=== PATIENT | male | born 2005 | race Caucasian/White ===

== ENCOUNTER 2025-02-16 11:19 | Emergency (ER) | payer OTHER, SELFPAY ==
--- OUTSIDE RECORDS SUMMARY | 2025-02-16 11:21 | XMS_ITS | Clinical Summary ---
Author Organization [facility] Address [address] [place] [address] Care Team Providers Care Security Incident Handler Name Role Phone Elsewhere, Pcp Primary Care Provider Unavailabl e Source Comments Patient records contain information from all sites at [facility]. For routine questions regarding patient records, call [phone] during business hours, M-F 8:00 AM - 5:00 PM Central Time. Record requests for emergency care only can be directed to [phone] at any time.[facility] Allergies No known active allergies Medications No known medications Active Problems Problem Noted Date Diagnosed Date Personal History Of Infectio us And Parasitic Disease (COVID-19) 07/16/2021 Immunizations Immunization Administration Dates Next Due 9vHPV 03/28/2018,03/23/2017 DTaP / Hep B / IPV (Pediarix) 05/03/2005, 005,2004 DTaP / Hib 01/22/2006 DTaP-IPV 11/24/2009 HepA Pediatric/Adolescent 09/30/2014,08/22/2012 Hib (PRP-OMP) (PedvaxHIB) 02/21/2005,2004 Influenza, Seasonal, Injectable 08/11/2008 Influenza, Unspecified 07/20/2010,07/21/2009 MCV4 (Menactra)(Discontinued) 05/10/2021 MCV4 (Menveo) 03/23/2017 MMR 11/24/2009,10/23/2005 PCV7 (discontinued) 01/22/2006, 5,02/21/2005,2004 Tdap 03/02/2024,03/23/2017 SHAUNNA 11/24/2009,10/23/2005 influenza trivalent vaccine (6 months and older)(PF) 07/27/2014,08/22/2012,07/20/2010,2008,10/10/2007,09/05/2007 influenza vaccine quad (FLUZ ONE) (6 months-35 months) (PF) 06/24/2013 influenza vaccine quad (FLUZONE/FLUARIX) (6 months and older)(PF) 08/04/2015,08/08/2014,06/24/2013 Family History Medical History Relation Name Comments Heart defect Brother Pulmonary hypertension Brother Hyperlipidemia Father Unknown Maternal Grandfather No Known Problems Maternal Grandmother No Known Problems Mother Alcoholic Paternal Grandfather Diabetes Paternal Grandfather Hyperlipidemia Paternal Grandfather Hypertension Paternal Grandfather Stroke Paternal Grandfather No Known Problems Paternal Grandmother No Known Problems Sister Relation Name Status Comments Brother Alive Father Alive Maternal Grandfather Maternal Grandmother Alive Mother Alive Paternal Grandfather Alive Paternal Grandmother Alive Sister Alive Social History Tobacco Use Types Packs/Day Years Used Date Smoking Tobacco: Never Smokeless Tobacco: Never Alcohol Use Standard Drinks/Week Comments Yes 0 (1 standard drink = 0.6 oz pur e alcohol) PHQ-2 Answer Date Recorded PHQ-9-M Total Score (5-9=Mil d, 10-14=Moderate, 15-19=Moderately Severe, 20-27=Severe) 0 05/10/2021 Depression Answer Date Recor ded PHQ-9-M Total Score (5-9=Mil d, 10-14=Moderate, 15-19=Moderately Severe, 20-27=Severe) 0 05/10/2021 Dental Answer Date Recorded Dental: Regular Dentist Unknown 11/30/19 21 Sex and Gender Information Value Date Recorded Sex Assigned at Not on file 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[employer] Gender Identity Not on file Sexual Orientation Not on file Last Filed Vital Signs Vital Sign Reading Time Taken Comments Blood Pressure 134/78 03/02/2024 9:45 AM CDT Pulse 73 03/02/2024 9:45 AM CDT Temperature 36.9 C (98.4 F) 03/02/2024 2:31 AM CDT Respiratory Rate 16 03/02/2024 9:45 AM CDT Oxygen Saturation 97% 03/02/2024 9:45 AM CDT Inhaled Oxygen Concentration - - Weight 53.5 kg (117 lb 15.1 oz) 03/02/2024 2:30 AM CDT Height 167 cm (5' 5.75) 05/10/2021 1:09 PM CDT Body Mass Index - - Plan of Treatment Health Maintenance Due Date Last Done Comments HIV Screening 2004 Hepatitis C Screening 2004 TB Screening during Well Child Visit 2004 Tobacco Cessation counseling 2004 1 week Well Child Check-Up 2004 1 month Well Child Check-Up 2004 2 month Well Child Check-Up 2004 4 month Well Child Check-Up 01/19/2005 9 month Well Child Check-Up 06/21/2005 15 month Well Child Check-Up 12/19/2005 18 month Well Child Check-Up 03/21/2006 2 year Well Child Check-Up 09/20/2006 30 month Well Child Check-Up 03/21/2007 3 year Well Child Check-Up 09/20/2007 Well Child Check-Up Completed in Past Year 09/20/2007 5 year Well Child Check-Up 09/20/2009 6 year Well Child Check-Up 09/20/2010 7 year Well Child Check-Up 09/20/2011 8 year Well Child Check-Up 09/20/2012 10 year Well Child Check-Up 09/20/2014 12 year Well Child Check-Up 09/20/2016 13 year Well Child Check-Up 09/20/2017 14 year Well Child Check-Up 09/20/2018 15 year Well Child Check-Up 09/20/2019 17 year Well Child Check-Up 09/20/2021 18 year Well Child Check-Up 09/20/2022 19 year Well Child Check-Up 09/20/2023 COVID-19 Vaccine ( season) 2024 Influenza Vaccine (#1) 2024 5, 08/08/2014, 07/27/2014, Additional history exists 20 year Well Child Check-Up 09/20/2024 Well Child Check-Up ([facility]) 09/20/2024 Depression Screening (Annual PHQ-2) 10/08/2024 Vision Screening during Well Child Visit 05/10/2025 05/10/2021 DTaP,Tdap,and Td Vaccines (8 - Td or Tdap) 03/02/2034 03/02/2024, 03/23/2017, 11/24/2009, Additional history exists Hepatitis B Vaccines Completed 05/03/2005, 02/21/2005, 2004 Pneumococcal vaccine (0-49 years) Aged Out 01/22/2006, 05/03/2005, 02/21/2005, Additional history exists No longer eligible based on patient's age to complete this topic IPV Vaccines Completed 11/24/2009, 04/08, 02/21/2005, Additional history exists HPV Vaccines Completed 03/28/2018, 03/23/2017 15 year Well Child Check-Up Completed 05/10/2021 Hearing Screening during Well Child Visit Completed 05/10/2021 Meningococcal Vaccine Completed 05/10/2021, 017 Care Teams Security Incident Handler Relationship Specialty Start Date End Date Elsewhere, Pcp PCP - General Family Medicine 05/10/21
[2025-02-16 11:27] VITALS: BP 123/72; PULSE 58; RESP 16; TEMP 36.3; O2SAT 99; BMI 18.2
--- NOTE | 2025-02-16 13:18 | ED.GENADULT ---
HPI - General Adult General Time Seen by Provider: 13:18 Date Seen: 02/16/25 Chief complaint: Unspecified Complaint, Adult Stated complaint: Allergic reaction to sunburn Time Seen by Provider: 02/16/25 13:18 Source: patient, family and RN notes reviewed Mode of arrival: ambulatory Limitations: no limitations History of Present Illness HPI narrative: This 19-year-old male is coming in with a reaction to sunburn. He was out on Sunday, did not use sunscreen. It is just his back that is burnt. He is itching, states it comes in waves, has had for spells. He thinks it is an allergic reaction. He is tried an orrg-epn-mwypbed anti-itch cream, not sure if this is a topical steroid or antihistamine type medicine. He has not taken anything for pain such as Tylenol or ibuprofen. He has used lotion. His dad had a similar reaction when he was a child and was given steroids. Patient is just back from [facility], school is done for him for the summer. Related Data Previous Rx's ?Medication ?Instructions ?Recorded hydroxyzine pamoate 25 mg capsule 25 mg PO QID PRN #10 caps 02/16/25 Allergies Allergy/AdvReac Type Severity Reaction Status Date / Time No Known Drug Allergies Allergy Verified 02/16/25 11:31 Review of Systems Narrative: As per HPI. Exam Const: Vital Signs, click to edit/add: Vital Signs - 24 hr 02/16/25 11:27 Temperature 97.3 F L Pulse Rate [Pulse Oximeter] 58 L Respiratory Rate 16 Blood Pressure [Ri ght Upper Arm] 123/72 Pulse Oximetry 99 Oxygen Delivery Me thod Room Air Patient is alert, interactive, no apparent distress. His back has blanchable erythema without any blisters, erythema is confluent and consistent with a mild to moderate sunburn. He is noted to be itching at his back. Inspection of his legs, arms, face, anterior chest reveal no sunburn. He states it is just his back. Documenting provider has reviewed patient's vital signs: yes Course Course ED Course: Reviewed with patient the up-to-date recommendations against oral steroids. There is no evidence of any benefit. We did review that the itching is part of some of the inflammatory process of the cells coming in. We do recommend symptomatic treatment. Did discuss using antihistamines, cool compresses, calamine lotion which is afho-wjk-avytygc. Will prescribe him some Vistaril, will give him a dose of 25 mg here today. Can take this as well as something like Zyrtec. Vital Signs Vital signs: Initial Vital Signs Temperature 97.3 F L 02/16/25 11:27 Temperature Source Temporal Artery Scan 02/16/25 11:27 Pulse Rate 58 L 02/16/25 11:27 Respiratory Rate 16 02/16/25 11:27 Blood Pressure 123/72 02/16/25 11:27 Blood Pressure Mean 89 02/16/25 11:27 Blood Pressure Position Sitting 02/16/25 11:27 Pulse Oximetry 99 02/16/25 11:27 Oxygen Delivery Method Room Air 02/16/25 11:27 Vital Signs Temperature 97.3 F L 02/16/25 11:27 Pulse Rate 58 L 02/16/25 11:27 Respiratory Rate 16 02/16/25 11:27 Blood Pressure 123/72 02/16/25 11:27 Pulse Oximetry 99 02/16/25 11:27 Oxygen Delivery Method Room Air 02/16/25 11:27 Temperature 97.3 F L 02/16/25 11:27 Pulse Rate 58 L 02/16/25 11:27 Respiratory Rate 16 02/16/25 11:27 Blood Pressure 123/72 02/16/25 11:27 Pulse Oximetry 99 02/16/25 11:27 Oxygen Delivery Method Room Air 02/16/25 11:27 Medications Administered Medications: Discontinued Medications Generic Name Dose Route Start Last Admin Trade Name Freq PRN Reason Stop Dose Admin Hydroxyzine Pamoate 25 mg 02/16/25 13:24 02/16/25 13:52 Hydroxyzine Pamoate 25 Mg Capsule PO 02/16/25 13:25 25 mg ONCE ONE Administration Discharge Plan Discharge Clinical Impression: 1st degree sunburn Patient Disposition: Home, Self-Care Condition: Stable Instructions: Sunburn (ED) Additional Instructions: Can use cool compresses. Recommend avoidance of any significant heat like hot showers as this can bring out itching. Calamine lotion may be soothing and calming 2 year back. Calamine lotion is sold aofn-cmj-[id number]. Recommend using Zyrtec or Claritin, 1 pill twice daily to help suppress the histamine reaction with sunburn, this is what is causing the itching. Will prescribe hydroxyzine, this will also help with itching but do know that it is sedating. You can use the hydroxyzine on top the nyly-swt-zrwbumw antihistamine medicine. If you have discomfort, recommend Tylenol and ibuprofen per bottle directions for dosing. Symptoms are usually improving within 3-5 days, maybe up to 7 in more advanced cases of sunburn. I do not see any blistering at this time, it is possible that some could develop but not likely. Steroids particularly orally are not recommended for sunburn, there are no studies showing any benefit. It is important to keep your back out of sun exposure until the burn has resolved. Highly recommend using sunscreen to prevent further burning. Getting sunburns does increase your risk of skin cancer including melanoma. Activity Level: No Restrictions Prescriptions: New hydroxyzine pamoate 25 mg capsule 25 mg PO QID PRNQty: 10 0RF Follow Up/Referrals: Provider,Not a Local [Primary Care Provider] - Stand Alone Forms: [employer] Info Instructions
[2025-02-16] MEDS: hydrOXYzine pamoate 25 MG CAPSULE PO (13:52)
--- OUTSIDE RECORDS SUMMARY | 2025-02-16 14:01 | XMS_ITS | Clinical Summary ---
Author Organization [facility] Address [address] [place] [address] Care Team Providers Care Furniture Reproducer Name Role Phone Elsewhere, Pcp Primary Care Provider Unavailabl e Source Comments Patient records contain information from all sites at [facility]. For routine questions regarding patient records, call [phone] during business hours, M-F 8:00 AM - 5:00 PM Central Time. 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
== END 2025-02-16 14:03 | disposition home or self-care (01) ==
LOC: ED 13:59
PROVIDERS: Emergency Provider Family Medicine
DX: L55.0 Sunburn of first degree (principal)
CPT/HCPCS: 99282; 99283; A9270